=== PATIENT | female | born 1980 | race Caucasian/White ===

== ENCOUNTER 2020-12-26 11:10 | Emergency (ER) | payer OTHER, SELFPAY ==
[2020-12-26 11:22] VITALS: BP 113/69; PULSE 57; RESP 16; TEMP 36.5; O2SAT 99
[2020-12-26 11:33] VITALS: BP 113/69; PULSE 57; RESP 16; TEMP 36.5; O2SAT 99
--- NOTE | 2020-12-26 11:54 | ED.DENTAL ---
HPI - Dental/Oral General Chief complaint: Dental/Oral Stated complaint: tooth pain Time Seen by Provider: 12/26/20 11:44 Source: patient and RN notes reviewed Mode of arrival: ambulatory Limitations: no limitations History of Present Illness HPI Narrative: Patient presents today complaining of right upper dental pain x3 days. 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 States the pain radiates to her jaw and mormon. She currently rates her pain 2/10 after taking a dose of Tylenol, which has provided some relief. She also took some leftover amoxicillin that she had from a couple years ago. MD Complaint: tooth pain Related Data Home Medications Medication Instructions Recorded Confirmed desoximetasone TOPICAL 12/26/20 Allergies Allergy/AdvReac Type Severity Reaction Status Date / Time codeine AdvReac Nausea and Verified 12/26/20 11:38 Vomiting tramadol AdvReac Nausea and Verified 12/26/20 11:38 Vomiting Review of Systems Review of Systems: Narrative: CONSTITUTIONAL: Denies body aches, fever, chills, or sweats. EYES: Denies visual changes, redness, or discharge. ENT: Denies rhinorrhea, congestion, sore throat, or otalgia.+ Tooth pain CARDIOVASCULAR: Denies chest pain, palpitations, or edema. RESPIRATORY: Denies cough or dyspnea. GASTROINTESTINAL: Denies abdominal pain, nausea, vomiting, or diarrhea. GENITOURINARY: Denies dysuria or hematuria. SKIN: Denies rash, itching, or wounds. MUSCULOSKELETAL: Denies back pain, joint pain, or myalgia. NEUROLOGIC: Denies headache, numbness, tingling, or weakness. PSYCH: Denies depression or anxiety. [facility] Past Medical History Medical History (Updated 12/26/20 @ 11:57 by Leilani Ortzi, RENTAL SALES AGENT, ) Discoid lupus Comments At time of signature, I have reviewed and agree with nursing past medical, surgical, social and family history unless otherwise noted. Please see nursing chart for further information. There is no relevant family history pertinent to the presenting complaint Exam Narrative: Exam Narrative: GENERAL: Well-appearing, well-nourished, and in no acute distress. HEAD: Normocephalic, atraumatic. EYES: EOMI. No redness or drainage. Conjunctivae normal. ENT: Mucous membranes pink and moist. Throat normal. Uvula midline. Mild erythema and edema to the right posterior upper gumline. No obvious periapical abscess. Gross dental decay. NECK: Normal AROM. CHEST: No respiratory distress. EXTREMITIES: Normal range of motion. No edema. SKIN: Warm, dry, no rash. Capillary refill normal. Normal skin turgor. NEURO: No focal deficits. Alert and oriented x3. Gait steady. PSYCH: Normal affect. No signs of depression or anxiety. Course Vital Signs Vital signs: Vital Signs Temperature 97.7 F 12/26/20 11:22 Pulse Rate 57 L 12/26/20 11:22 Respiratory Rate 16 12/26/20 11:22 Blood Pressure 113/69 12/26/20 11:22 Pulse Oximetry 99 12/26/20 11:22 Temperature 97.7 F 12/26/20 11:33 Pulse Rate 57 L 12/26/20 11:33 Respiratory Rate 16 12/26/20 11:33 Blood Pressure 113/69 12/26/20 11:33 Pulse Oximetry 99 12/26/20 11:33 Reviewed MDM - Dental/Oral Differential Diagnosis Differential diagnosis: Likely gingival abscess, dental caries, toothache, dental abscess and fracture of tooth Critical Care Time Critical Care Time Critical Care Time: No Discharge Plan Discharge Clinical Impression: Dental abscess Patient Disposition: Home, Self-Care Condition: Stable Instructions: Antibiotic Form, Dental Abscess (ED) Additional Instructions: Please take the Augmentin as prescribed until gone. Continue Tylenol for pain. Follow-up with your dentist as soon as possible. Patient Language: Jordanian Prescriptions: New amoxicillin-pot clavulanate [Augmentin] 875-125 mg tablet 1 tablet PO Q12H 10 Days Qty: 20 RF: 0 No Action desoximetasone 0.25 % ointment
== END 2020-12-26 12:05 | disposition home or self-care (01) ==
PROVIDERS: Emergency Provider Nurse Practitioner
DX: K04.7 Periapical abscess without sinus (principal); L93.0 Discoid lupus erythematosus
CPT/HCPCS: 99213; G0463

== ENCOUNTER 2021-04-30 10:29 | Emergency (ER) | payer OTHER, SELFPAY ==
[2021-04-30 10:38] VITALS: BP 124/74; PULSE 72; RESP 18; TEMP 36.7; O2SAT 100
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
== END 2021-04-30 11:45 | disposition home or self-care (01) ==
PROVIDERS: Emergency Provider Registered Nurse; PCP Internal Medicine
DX: H66.92 Otitis media, unspecified, left ear (principal); J40 Bronchitis, not specified as acute or chronic; F17.210 Nicotine dependence, cigarettes, uncomplicated; L93.0 Discoid lupus erythematosus
CPT/HCPCS: 87081; 87880; 99213; G0463